=== PATIENT | male | born 1950 | race Caucasian/White ===

== ENCOUNTER → 2024-04-29 16:22 | Outpatient (REF) | payer OTHER, SELFPAY | LOC: RAD 16:22 | DX: R10.31 Right lower quadrant pain (principal) | CPT/HCPCS: 76705 ==

== ENCOUNTER 2024-04-30 20:43 | Inpatient (IN) | payer OTHER, SELFPAY ==
[2024-04-30 16:42] VITALS: BP 151/83
--- NOTE | 2024-04-30 16:49 | ED.GENMED ---
ED Provider Triage
<Criss Erickson PA-C - Last Filed: 04/30/24 16:50>
-
Patient seen by provider in Triage?: Seen in Triage
Attestation: A medical screening examination has been initiated by a qualified medical provider. Based on the assessment performed at this time, it has been determined that an emergent medical condition may exist and the patient has been informed
that further medical evaluation and possible additional diagnostic testing may be needed.
HPI: 74yoM here after an outpatient CT this morning showed appendicitis. Having abd pain x 3-4 days. Also feels constipated. Had some chills yesterday but denies fevers.
GENERAL: Alert , in no apparent distress
EYE: No visual abnormalities.
NECK: Trachea midline
ENT: No visible abnormalities.
LUNGS: No acute respiratory distress
NEUROLOGICAL: Alert and oriented
SKIN: Skin intact. No visible changes.
MUSCULOSKELETAL: Moving extremities normally
PSYCH: Normal and appropriate interaction.
This is a medical evaluation conducted in person to initiate diagnostic evaluation and provide initial therapeutics. Please see further documentation by the treating clinician.
CBC, CMP, and IV ordered.
History of Present Illness
<Criss Erickson PA-C - Last Filed: 04/30/24 16:50>
General
Chief Complaint: Abdominal Pain
Time Seen by Provider: 04/30/24 18:48
<Joseline Ashton PA-C - Last Filed: 05/01/24 00:05>
General
Source: patient
Exam Limitations: none
Nursing documentation reviewed up to this point in time: agreed with
History of Present Illness
History of Present Illness:
Patient is a 74-year-old male with history hypertension, hyperlipidemia, CAD, diabetes presenting to the emergency department after outpatient CT scan showed acute appendicitis. Patient reports ongoing abdominal pain over the past 3 to 4 days which
has actually improved since the initial day of pain. Pain is somewhat localized the right lower quadrant. He did have chills yesterday but denies any known fevers. He does report significant anorexia and has not eaten much over the past 4 days.
However�he did have oatmeal today around 2 PM. Patient denies any chest pain, shortness of breath, dysuria.
Of note�patient does report that he initially saw his primary care 2 days ago and had an outpatient ultrasound which is not [place]. They then performed a CT scan which resulted today showing appendicitis. Patient was then referred to the emergency
department.
Patient is on any blood thinners.
Past History
<Criss Erickson PA-C - Last Filed: 04/30/24 16:50>
Past History
ED Past Medical History: HTN, Hypercholesterolemia, NIDDM and Other ( The patient apparently had a vasospastic IN )
ED Past Surgical History: Other (Patient had a cardiac catheter 2006 which was apparently normal )
Social History
Personal:
Living: with family
Employment: Employed
Review of Systems
<Joseline Ashton PA-C - Last Filed: 05/01/24 00:05>
Review of Systems
Allergies reviewed?: Yes
All Other Systems: ROS reviewed and negative except as documented in HPI and ROS
Phy Exam
<Joseline Ashton PA-C - Last Filed: 05/01/24 00:05>
Physical Exam
Physical Exam:
Vitals: Hypertensive, otherwise stable vital signs. Afebrile
General: Patient is in no acute distress
Skin: Warm and dry, no rashes or lesions
Head: Normocephalic, atraumatic
Eyes: Sclera nonicteric. EOMs intact. No nystagmus.
Throat: Protecting airway
Neck: Normal ROM, no cervical spine tenderness, no meningismus
Cardiac: Regular rate and rhythm, no murmurs.
Pulm: Normal respiratory effort, no wheezes, rales, rhonchi heard on exam.
Abdomen: Abdomen soft. Moderate tenderness in right lower quadrant without rebound tenderness or guarding. No CVA tenderness
Extremities: No evidence of cyanosis or edema. Palpable distal pulses bilaterally
Neuro: AAOx3. Grossly intact.
Psychiatric: Normal affect.
Course
<Criss Erickson PA-C - Last Filed: 04/30/24 16:50>
Orders/Labs/Results
Orders:
Orders
04/30/24 Dinner
NPO
Allow oral meds: Yes
Allow clear liquids: Sips of Clears
04/30/24 16:54
Complete Blood Count/With Diff Urgent
Comprehensive Metabolic Panel Urgent
04/30/24 19:10
SURGICAL CONSULT Urgent
Consulting Provider: Michael Kothari
Was physician already notified: Yes
0.9% Sodium Chloride 1000 ml [Nss] 1,000 ml IV BOLUS
Piperacillin/Tazo 3.375 Gram [Zosyn] 3.375 gram in 50 ml IV NOW
04/30/24 19:11
Electrocardiogram (*1) Urgent
Reason for Study: PreOp
EKG- Treatment ONCE
04/30/24 20:19
Admit/Transfer Patient As Directed
Co-Sign Provider:
Level of Care: Inpatient admission
Assign to:: Medical/Surgical
Physician / Group: hospitalist
Diagnosis: appendicitis
Reason for Hospitalization: appendicitis
Expected length of stay greater than two midnights?: Yes
ELOS- Estimated Length of Stay in days: 2
I certify the patient meets the requirements for IP care: Yes
04/30/24 20:20
Code Status As Directed
Resuscitation Status: Full Code
PRN Pain Medication Management As Directed
May give lesser potent ordered pain med per pt: Yes
preference::
Protocol:: Medication orders for pain may be administered in a
manner that supports deferring to patient preference
when the pt is:
- Requesting an ordered lesser potent pain medication.
Least to most potent pain medications are defined
as: acetaminophen < NSAID < tramadol < opioids
(morphine, oxycodone, hydromorphone).
- Requesting a lesser dose of the same medication IF
ORDERED.
- Requesting a less intrusive route of administration
if both routes are prescribed by the provider (PO <
IV).
04/30/24 23:42
Acetaminophen [Tylenol] 650 mg PO Q4HPRN PRN
Lactated Ringers [Lr] 1,000 ml IV 100 mls/hr
Morphine Sulfate 2 mg IV Q4HPRN PRN
Ondansetron Injectable [Zofran] 4 mg IV Q6HPRN PRN
Oxycodone [Roxicodone] 5 mg PO Q4HPRN PRN
04/30/24 23:42
Activity As Directed
Activity Level: With Assistance
Bedside Glucose Monitoring As Directed
Frequency: Q6H
Vital Signs As Directed
Frequency: Per unit guidelines
DX Deep Vein Thrombosis Video Routine
05/01/24 00:00
Insulin Aspart Corrective Low [Novolog Flexpen-Low Resistance] See Protocol SC Q6
05/01/24 02:00
Piperacillin/Tazo 3.375 Gram [Zosyn] 3.375 gram in 50 ml IV Q6H
05/01/24 06:00
Basic Metabolic Panel IN AM
Complete Blood Count/No Diff IN AM
Magnesium IN AM
05/01/24 08:00
Amlodipine [Norvasc] 5 mg PO DAILY
Paroxetine [Paxil] 20 mg PO DAILY
05/01/24 18:00
Enoxaparin Sodium [Lovenox] 40 mg SC QPM
Abnormal Lab Results
04/30/24
16:54
WBC 12.2 H 10^3/uL
(4.8-10.8)
Absolute Neuts (auto) 9.6 H 10^3/uL
(1.4-6.5)
Absolute Monos (auto) 1.4 H 10^3/uL
(0.1-0.6)
Neutrophils % 78.5 H %
(42.2-75.2)
Lymphocytes % 9.7 L %
(20.5-51.1)
Monocytes % 11.0 H %
(1.7-9.3)
Sodium 132 L mmol/L
(135-145)
Chloride 93 L mmol/L
(98-107)
BUN 25 H mg/dl
(9-20)
Glucose 221 H mg/dl
(70-99)
Total Bilirubin 2.4 H mg/dl
(0.2-1.3)
04/30/24 16:54
04/30/24 16:54
Vital Signs
Initial and Last Documented VS:
Initial Vital Signs
Temp Pulse Resp BP Pulse Ox
98.1 F 111 18 151/83 96
04/30/24 16:42 04/30/24 16:42 04/30/24 16:42 04/30/24 16:42 04/30/24 16:42
Last Documented Vital Signs
Temp Pulse Resp BP Pulse Ox
98.1 F 90 16 119/61 95
04/30/24 16:42 04/30/24 19:49 04/30/24 19:49 04/30/24 20:00 04/30/24 23:30
<Joseline Ashton PA-C - Last Filed: 05/01/24 00:05>
Orders/Labs/Results
Orders:
Orders
04/30/24 Dinner
NPO
Allow oral meds: Yes
Allow clear liquids: Sips of Clears
04/30/24 16:54
Complete Blood Count/With Diff Urgent
Comprehensive Metabolic Panel Urgent
04/30/24 19:10
SURGICAL CONSULT Urgent
Consulting Provider: Michael Kothari
Was physician already notified: Yes
0.9% Sodium Chloride 1000 ml [Nss] 1,000 ml IV BOLUS
Piperacillin/Tazo 3.375 Gram [Zosyn] 3.375 gram in 50 ml IV NOW
04/30/24 19:11
Electrocardiogram (*1) Urgent
Reason for Study: PreOp
EKG- Treatment ONCE
04/30/24 20:19
Admit/Transfer Patient As Directed
Co-Sign Provider:
Level of Care: Inpatient admission
Assign to:: Medical/Surgical
Physician / Group: hospitalist
Diagnosis: appendicitis
Reason for Hospitalization: appendicitis
Expected length of stay greater than two midnights?: Yes
ELOS- Estimated Length of Stay in days: 2
I certify the patient meets the requirements for IP care: Yes
04/30/24 20:20
Code Status As Directed
Resuscitation Status: Full Code
PRN Pain Medication Management As Directed
May give lesser potent ordered pain med per pt: Yes
preference::
Protocol:: Medication orders for pain may be administered in a
manner that supports deferring to patient preference
when the pt is:
- Requesting an ordered lesser potent pain medication.
Least to most potent pain medications are defined
as: acetaminophen < NSAID < tramadol < opioids
(morphine, oxycodone, hydromorphone).
- Requesting a lesser dose of the same medication IF
ORDERED.
- Requesting a less intrusive route of administration
if both routes are prescribed by the provider (PO <
IV).
04/30/24 23:42
Acetaminophen [Tylenol] 650 mg PO Q4HPRN PRN
Lactated Ringers [Lr] 1,000 ml IV 100 mls/hr
Morphine Sulfate 2 mg IV Q4HPRN PRN
Ondansetron Injectable [Zofran] 4 mg IV Q6HPRN PRN
Oxycodone [Roxicodone] 5 mg PO Q4HPRN PRN
04/30/24 23:42
Activity As Directed
Activity Level: With Assistance
Bedside Glucose Monitoring As Directed
Frequency: Q6H
Vital Signs As Directed
Frequency: Per unit guidelines
DX Deep Vein Thrombosis Video Routine
05/01/24 00:00
Insulin Aspart Corrective Low [Novolog Flexpen-Low Resistance] See Protocol SC Q6
05/01/24 02:00
Piperacillin/Tazo 3.375 Gram [Zosyn] 3.375 gram in 50 ml IV Q6H
05/01/24 06:00
Basic Metabolic Panel IN AM
Complete Blood Count/No Diff IN AM
Magnesium IN AM
05/01/24 08:00
Amlodipine [Norvasc] 5 mg PO DAILY
Paroxetine [Paxil] 20 mg PO DAILY
05/01/24 18:00
Enoxaparin Sodium [Lovenox] 40 mg SC QPM
Abnormal Lab Results
04/30/24
16:54
WBC 12.2 H 10^3/uL
(4.8-10.8)
Absolute Neuts (auto) 9.6 H 10^3/uL
(1.4-6.5)
Absolute Monos (auto) 1.4 H 10^3/uL
(0.1-0.6)
Neutrophils % 78.5 H %
(42.2-75.2)
Lymphocytes % 9.7 L %
(20.5-51.1)
Monocytes % 11.0 H %
(1.7-9.3)
Sodium 132 L mmol/L
(135-145)
Chloride 93 L mmol/L
(98-107)
BUN 25 H mg/dl
(9-20)
Glucose 221 H mg/dl
(70-99)
Total Bilirubin 2.4 H mg/dl
(0.2-1.3)
04/30/24 16:54
04/30/24 16:54
Vital Signs
Initial and Last Documented VS:
Initial Vital Signs
Temp Pulse Resp BP Pulse Ox
98.1 F 111 18 151/83 96
04/30/24 16:42 04/30/24 16:42 04/30/24 16:42 04/30/24 16:42 04/30/24 16:42
Last Documented Vital Signs
Temp Pulse Resp BP Pulse Ox
98.1 F 90 16 119/61 95
04/30/24 16:42 04/30/24 19:49 04/30/24 19:49 04/30/24 20:00 04/30/24 23:30
<Joseline Ashton PA-C - Last Filed: 05/01/24 00:05>
MDM/Problems Addressed
Differential Diagnosis Includes:
Not limited to: Appendicitis, complicated appendicitis including abscess or perforation
MDM/Problems Addressed:
74-year-old male presenting with 3 days of right lower quadrant pain and appendicitis seen on outpatient CT scan. No fevers or vomiting. No urinary symptoms. Patient initially tachycardic on arrival although normalized by my assessment. He is
afebrile with otherwise stable vital signs. Physical exam as above. Patient very well-appearing, nontoxic. Abdomen is soft with moderate tenderness in right lower quadrant no rebound tenderness or guarding. Cardio/pulmonary assessment
unremarkable. Basic labs initiated in triage show leukocytosis of 12.2, otherwise no clinically significant abnormalities. Did review CT scan performed outpatient which shows findings of acute appendicitis, possible phlegmon versus contained
perforation at tip of appendix. Case and findings were discussed with general surgery, Dr. Kothari. Plan to keep patient n.p.o. with general surgery consultation tomorrow. Possible operative versus nonoperative management. Patient started on
Zosyn, IV fluids emergency department. Will give Tylenol for pain. Will obtain preop EKG. Patient admitted to hospitalist service in stable condition. Case discussed with attending physician.
Chronic conditions affecting care:
Hypertension, diabetes
Acute Exacerbation and/or Progression of Chronic Illness:
Acutely hypertensive, acutely hyperglycemic
<Joseline Ashton PA-C - Last Filed: 05/01/24 00:05>
*Pulse Oximetry
Patient hypoxic: no
*EKG
Interpreted by ED Provider?: Yes
EKG Intrepretation Date: 04/30/24
Interpretation: normal
Comparison EKG: no changes
Heart Rate: 93
Rate: normal
Rhythm: sinus
[place]: normal axis
Interval: normal QT interval
QRS Pattern: right bundle branch block
Ischemia: no ischemia
*Doll Wig Maker Interpretation
Rate: Doll Wig Maker- N/A
*Critical Care Note
Total Time (30-74mins, 75-104mins- exclusive of procedures): Not Applicable
<Joseline Ashton PA-C - Last Filed: 05/01/24 00:05>
Patient Management
Discussion with other providers: Hospitalist and [employer] Analyst (General Surgery-Dr. Kothari)
Escalation/DeEscalation of care consider admission/obs:
Admit for general surgery consultation, IV antibiotics
ED Attending Note
<Criss Erickson PA-C - Last Filed: 04/30/24 16:50>
-
Portions of this chart may have been created with voice recognition software.� Occasional wrong word or��sound alike� substitutions may have occurred due to the inherent limitations of voice recognition software.
Discharge Plan
Departure
Patient Disposition: Admit
Date of Disposition: 04/30/24
Time of Disposition: 19:24
Presentation/result/management discussed w/ accepting MD/DO: Hospitalist
Discharge Problem:
Acute appendicitis
Interventions
Interventions:
*Risk Screen - Suicide Last Done: 04/30/24 16:42
*General Assessment Last Done: 04/30/24 19:47
*Neglect/Abuse Screening Last Done: 04/30/24 16:42
ED- Fall Risk Assessment Last Done: 04/30/24 22:13
*ED COVID-19 Vaccine History Last Done: 04/30/24 16:42
*Nursing Disposition Last Done: 04/30/24 23:43
VP-Naqaam-Qfbavgnmhe Assessment Last Done: 04/30/24 19:47
Discharge Date and Time
Discharge Date/Time: 04/30/24 23:43
[2024-04-30 17:12] LABS: % Basophils 0.2 % (0-2); % Eosinophils 0.3 % (0-6); % Immature Granulocytes 0.3 % (0-0.5); % Lymphocytes 9.7 % (20.5-51.1); % Neutrophils 78.5 % (42.2-75.2); Absolute Lymphocytes 1.2 10^3/uL (1.2-3.4); Absolute Monocytes 1.4 10^3/uL (0.1-0.6); Absolute Neutrophils 9.6 10^3/uL (1.4-6.5); Hematocrit 42.6 % (39.0-52.0); Hemoglobin 14.5 g/dL (13.0-18.0); Mean Platelet Volume 9.4 fL (7.4-10.4); Nucleated Red Blood Cells % 0 % (-); Platelet Count 272 10^3/uL (130-400); Red Blood Cell Count 4.84 10^6/uL (4.70-6.10); Red Cell Dist. Width 13.1 % (11.5-14.5); White Blood Cell Count 12.2 10^3/uL (4.8-10.8)
[2024-04-30 17:31] LABS: ALT (SGPT) 24 U/L (0-50); AST (SGOT) 26 U/L (17-59); Albumin 4.3 g/dl (3.5-5.0); Alkaline Phosphatase 108 U/L (38-126); Blood Urea Nitrogen 25 mg/dl (9-20); Carbon Dioxide 26 mmol/L (22-30); Chloride 93 mmol/L (98-107); Glucose 221 mg/dl (70-99); Potassium 4.3 mmol/L (3.5-5.1); Sodium 132 mmol/L (135-145); Total Bilirubin 2.4 mg/dl (0.2-1.3); eGFR > 60.00
[2024-04-30] MEDS: NSS 1000 IV (19:45)
[2024-04-30] MEDS: ZOSYN 50 IV (19:46)
[2024-04-30 19:49] VITALS: BP 132/64
[2024-04-30 20:00] VITALS: BP 119/61
--- NOTE | 2024-04-30 20:14 | HPS.HSE ---
Family Physician
-
Family Physician: Alex Mac MD
Chief Complaint
-
Abdominal pain
History of Present Illness
This is a 74 y.o male with past medical history of [id number] Beatties, hypertension, CAD status post remote GA who presents to the emergency department with 4 days of abdominal pain.
Patient reports sudden onset of acute abdominal pain localized to the right lower quadrant occasionally radiating to the periumbilical region. He said the pain was severe about 4 days ago but seems to have improved over the last 2 days. He denied
having fevers or chills. He denies any nausea vomiting or diarrhea. He followed up with his physician 2 days ago and had an ultrasound yesterday which was nonconclusive. He followed up with a CT scan this morning which showed acute appendicitis
and came to the emergency department for further evaluation.
In the emergency department the patient was afebrile, blood pressure was 150/80 with a pulse of 90 satting 97% on room air. White count was 12.2, hemoglobin 14.5 platelet count 272. Electrolytes notable for a sodium of 132 but is otherwise
unremarkable. BUN and creatinine noted.
CT of the abdomen and pelvis shows acute appendicitis with phlegmon versus contained perf.
Medical History
Past Medical History
Past Medical History: Reports CAD (remote mi), HTN, Hypercholesterolemia and NIDDM
Past Surgical History: Reports Other
Social History
Tobacco: Non-smoker
Alcohol: None
Drug: None
Personal: Single
Living: With Family
Employment: Retired
Family History
Family History: Not pertinent
Allergies / Home Medications
Allergies reflects when Allergies were last updated in [facility].
Home Medications with original date entered in [facility]
Allergy/Medication List:
Allergies
Allergy/AdvReac Type Severity Reaction Status Date / Time
No Known Allergies Allergy Verified 04/30/24 16:47
Home Medications
aspirin 81 mg tablet,delayed release 81 mg PO DAILY 01/09/10
atorvastatin 20 mg tablet 20 mg PO DAILY 01/09/10
multivitamin with folic acid 400 mcg tablet (Tab-A-Yasir) 1 tab PO DAILY 01/09/10
paroxetine HCl 20 mg tablet 20 mg PO DAILY 01/09/10
pioglitazone 30 mg tablet 30 mg PO DAILY 01/09/10
nitroglycerin 0.4 mg sublingual tablet 0.4 mg sublingual [id number] PRN chest pains 05/14/12
omega-3 fatty acids-fish oil 300 mg-1,000 mg capsule 1 ea PO BID 05/14/12
metformin 1,000 mg tablet 1,000 mg PO BID 05/15/12
amlodipine 5 mg tablet (Norvasc) 5 mg PO DAILY 04/30/24
glipizide 10 mg tablet, extended release 24 hr 10 mg PO BID 04/30/24
semaglutide 0.25 mg or 0.5 mg (2 mg/3 mL) subcutaneous pen injector (Ozempic) 0.5 mg SC SA 04/30/24
Review of Systems
-
Constitutional: Reports No Symptoms
EENT: Reports No Symptoms
Cardiac: Reports No Symptoms
Abdomen/GI: Reports Abdominal Pain
Musculoskeletal: Reports No Symptoms
Skin: Reports No Symptoms
Neurological: Reports No Symptoms
Endocrine: Reports No Symptoms
Hematologic/Lymphatic: Reports No Symptoms
Psych: Reports No Symptoms
Physical Exam
Vital Signs
Vital Signs
Temp Pulse Resp BP Pulse Ox
98.1 F 90 16 151/83 97
04/30/24 16:42 04/30/24 19:49 04/30/24 19:49 04/30/24 16:42 04/30/24 19:49
Physical Exam
General: Well Developed, Well Nourished, No Apparent Distress and Comfortable
HEENT: NormoCephalic, Anicteric, Moist mucous membranes and Atraumatic
Respiratory: Clear
Cardiac: S1/S2 and Regular Rhythm
Breast: Deferred by me
GI: Soft, Non Distended, Normal Bowel Sounds and Tender (Right lower quadrant)
Rectal: Deferred by Provider
Genito-urinary: Deferred by me
Musculoskeletal: No Clubbing and No Edema
Skin: Warm
Neuro: AO x 3 and Nonfocal/grossly intact
Hematologic/Lymphatic: No Lymphadenopathy
Psych: Calm
Laboratory Results
-
04/30/24 16:54
04/30/24 16:54
Laboratory Results
Total Bilirubin 2.4 mg/dl (0.2-1.3) H 04/30/24 16:54
AST 26 U/L (17-59) 04/30/24 16:54
ALT 24 U/L (0-50) 04/30/24 16:54
Alkaline Phosphatase 108 U/L (38-126) 04/30/24 16:54
Data Reviewed
-
CT Scan: Report Reviewed by me
Lab Data: Labs Reviewed by me
Old Records: Reviewed
Impression/Plan
-
IMPRESSION:
74 y.o with acute appendicitis.
PLAN:
1.Acute appendicitis - seenon CT a/p. WBC 12. Afebrile, HD ginny. No abdominal pain at rest. RLQ tenderness to palpation on examination.
- admit to med/surg
- surgery aware and holding off surgery at the moment
- continue zosyn for now
- NPO, IV fluids, antimetics and pain control
- surgical consult.
2. DM II-
- hold glipizide and metformin
- sliding scale insulin
3. CAD
- continue atorvastatin for now, hold aspirin
- continue amlodipine
DVT PPX - lovenox
Code status - full code
[2024-04-30 23:53] VITALS: BP 124/67; BMI 29.3
[2024-04-30] MEDS: LR 1000 IV (23:59)
[2024-05-01] VITALS (11 sets, daily range): BP systolic 0–157; BP diastolic 59–78
[2024-05-01] MEDS: NOVOLOG FLEXPEN-LOW RESISTANCE SC ×3 (00:17→12:18)
[2024-05-01 00:25] LABS: Glucose - Point of Care 127 mg/dl (70-99)
--- NOTE | 2024-05-01 00:33 | PTCARENOTE ---
Received patient from ED via stretcher; Medsurg order. VSS> afebrile, HR 85, RR 18, BP 124/67, pox 98% room air. 3/10 dull pain RLQ. AAOx3, steady on feet. PMH reviewed by this RN and patient. Plan of care discussed. Patient oriented to room. Call
payen within reach.
[2024-05-01] MEDS: ZOSYN 50 IV ×4 (02:06→19:54)
[2024-05-01 06:13] LABS: Glucose - Point of Care 98 mg/dl (70-99)
--- NOTE | 2024-05-01 08:15 | CON.GS ---
Medical History
-
Chief Complaint: Abdominal pain
History of Present Illness:
Patient is a 74-year-old male with a 4-day history of abdominal pain, acute in onset initially periumbilical and subsequently localizing more to the right lower quadrant. Had associated subjective chills/sweats couple days ago. Mild nausea but no
vomiting. Some associated anorexia. Bowels were moving regularly, continues to pass flatus but no bowel movement in the last 2 days. No similar episodes in the past. Outpatient workup identified appendicitis prompting emergency department
evaluation.
Past Medical History
Past Medical History: CAD (Previous history of ND with angioplasty), HTN, Hypercholesterolemia, NIDDM and Other
Past Surgical History: Other (No past abdominal surgical history)
Social History
Tobacco: Non-Smoker
Family History
Family History: Reviewed & Noncontributory
Allergies / Home Medications
Allergy/AdvReac Type Severity Reaction Status Date / Time
No Known Allergies Allergy Verified 04/30/24 16:47
�Medication �Instructions �Recorded �Confirmed �Type
aspirin 81 mg tablet,delayed 81 mg PO DAILY 01/09/10 04/30/24 History
release
atorvastatin 20 mg tablet 20 mg PO DAILY 01/09/10 04/30/24 History
multivitamin with folic acid 400 1 tab PO DAILY 01/09/10 04/30/24 History
mcg tablet (Tab-A-Yasir)
paroxetine HCl 20 mg tablet 20 mg PO DAILY 01/09/10 04/30/24 History
pioglitazone 30 mg tablet 30 mg PO DAILY 01/09/10 04/30/24 History
nitroglycerin 0.4 mg sublingual 0.4 mg sublingual [id number] PRN 05/14/12 04/30/24 History
tablet chest pains
omega-3 fatty acids-fish oil 300 1 ea PO BID 05/14/12 04/30/24 History
mg-1,000 mg capsule
metformin 1,000 mg tablet 1,000 mg PO BID 05/15/12 04/30/24 History
amlodipine 5 mg tablet (Norvasc) 5 mg PO DAILY 04/30/24 04/30/24 History
glipizide 10 mg tablet, extended 10 mg PO BID 04/30/24 04/30/24 History
release 24 hr
semaglutide 0.25 mg or 0.5 mg (2 0.5 mg SC SA 04/30/24 04/30/24 History
mg/3 mL) subcutaneous pen injector
(Ozempic)
Review of Systems
-
A 10 point review of systems was completed, and was negative except as per HPI.
Physical Exam
Vital Signs
Temp Pulse Resp BP Pulse Ox
98.5 F 90 14 136/68 96
05/01/24 07:30 05/01/24 07:30 05/01/24 07:30 05/01/24 07:30 05/01/24 07:30
04/30/24 05/01/24 05/02/24
06:59 06:59 06:59
Actual Weight 89.857 kg
Body Mass Index (BMI) 29.3
Lab Results
WBC 12.2 10^3/uL (4.8-10.8) H 04/30/24 16:54
Hgb 14.5 g/dL (13.0-18.0) 04/30/24 16:54
Hct 42.6 % (39.0-52.0) 04/30/24 16:54
Plt Count 272 10^3/uL (130-400) 04/30/24 16:54
Abs Immat Gran (auto) 0.0 10^3/uL (0-0.05) 04/30/24 16:54
Neutrophils % 78.5 % (42.2-75.2) H 04/30/24 16:54
Physical Exam
General: Well Developed, Well Nourished, No Apparent Distress and Comfortable
HEENT: Normocephalic and Anicteric
Respiratory: Non Labored Respirations
Cardiac: Regular Rhythm
GI: Soft, Non Distended (But protuberant) and Tender (Tenderness palpation localized to the right lower quadrant. No rebound, no rigidity, no guarding)
Skin: Warm
Neuro: AO x 3
Psych: Calm
Data Reviewed
-
CT Scan: Image Personally Visualized and interpreted, Report Reviewed by me, Discussed with Physician and Discussed with Patient
Labs: Labs Reviewed by me
Assessment / Plan
-
Assessment: 74-year-old male presenting with acute appendicitis.
CT imaging personally reviewed. Distended appendix, fluid-filled, possible radiopaque fecalith at the base. Majority of inflammatory process is around the mid to distal appendix with some surrounding free fluid or phlegmon. No extraluminal air.
No organized abscess. Base of the appendix, cecum and terminal ileum appear without significant inflammatory changes.
Reviewed with patient treatment options including operative and nonoperative management. We reviewed risks and benefits of these treatment options and patient is in agreement to proceed with appendectomy. Laparoscopic appendectomy was reviewed in
detail including the operative technique, potential operative findings and the management, alternative treatment options, benefits and risk such as but not limited to bleeding, infectious and related complications, iatrogenic injury to surrounding
viscera. We discussed the typical postoperative recovery pending operative findings including risk of postoperative ileus, utilization of a HAFSA drain and postoperative activity limitations as well as surgical follow-up. Any of the patient's
concerns or questions were fully addressed and informed consent was obtained.
Plan: Patient is on the OR schedule today for a laparoscopic appendectomy
N.p.o.
IV antibiotics and supportive care awaiting the OR timing
[2024-05-01 08:32] LABS: Hematocrit 39.2 % (39.0-52.0); Hemoglobin 13.5 g/dL (13.0-18.0); Mean Corp Hgb Conc. 34.4 g/dL (33.0-37.0); Mean Corpuscular Hgb 30.5 pg (27.0-31.0); Mean Corpuscular Volume 88.7 fL (80.0-94.0); Mean Platelet Volume 9.5 fL (7.4-10.4); Platelet Count 254 10^3/uL (130-400); Red Blood Cell Count 4.42 10^6/uL (4.70-6.10); White Blood Cell Count 10.1 10^3/uL (4.8-10.8)
[2024-05-01] MEDS: NORVASC 5 MG PO (08:46)
[2024-05-01] MEDS: PAXIL 20 MG PO (08:46)
[2024-05-01 09:02] LABS: Blood Urea Nitrogen 12 mg/dl (9-20); Calcium 8.1 mg/dl (8.4-10.2); Carbon Dioxide 29 mmol/L (22-30); Chloride 99 mmol/L (98-107); Estimated Creatinine Clearance 106 ml/min; Glucose 94 mg/dl (70-99); Magnesium 1.7 mg/dl (1.6-2.3); Potassium 3.8 mmol/L (3.5-5.1); Sodium 138 mmol/L (135-145); eGFR > 60.00
--- NOTE | 2024-05-01 09:20 | W.PN.HOSP.TC ---
Today's Communication/Plan
-
see outlined plan
Assessment / Plan
Assessment / Plan
Assessment:
Acute appendicitis
- CT: Appendicitis. Small region of confluent opacity adjacent to the appendix tip; phlegmon versus contained perforation.
- continue NPO, IVF
- continue Zosyn
- pain control, anti-emetics
- GS consulted; for lap appy today
Acute hyponatremia
- improving with IVF
CAD s/p hx of remote RI
HLD
- hold ASA and continue Statin
Essential HTN
- continue Norvasc
NIDDM
- continue SSI
- holding MFM/Actos/Glipizide/Ozempic
DVT ppx: Lovenox
Code: Full
Anticipated Discharge: 24 - 48 hours
Subjective/Interval History
-
Date of Service: May 01, 2024
reports some RLQ pain
had a BM today
no n/v
Objective Data
-
Labs:
Laboratory Results
05/01/24
08:10
WBC 10.1
Hgb 13.5
Hct 39.2
Plt Count 254
Sodium 138
Potassium 3.8
Chloride 99
Carbon Dioxide 29
BUN 12
Creatinine 0.6 L
Glucose 94
Calcium 8.1 L
Vital Signs:
Vital Signs
Temp Pulse Resp BP Pulse Ox
98.5 F 90 14 136/68 96
05/01/24 07:30 05/01/24 08:46 05/01/24 07:30 05/01/24 08:46 05/01/24 07:30
I&O
04/30/24 05/01/24 05/02/24
06:59 06:59 06:59
Intake Total 700 / 700
Balance 700 / 700
Physical Exam
-
General: No Apparent Distress
HEENT: Normocephalic and Atraumatic
Respiratory: Negative Wheezes
Cardiac: Regular Rhythm and S1/S2
GI: Tender ((Tenderness palpation localized to the right lower quadrant. No rebound, no rigidity, no guarding)
Neuro: AO x 3
Hematologic / Lymphatic: No Lymphadenopathy
Psych: Calm
Data Reviewed
-
Total Time Spent with Patient (in minutes): 42
Labs: Labs Reviewed by me
--- NOTE | 2024-05-01 10:05 | CM ---
Patient seen bedside.
Patient for Appendectomy today
IA completed.
patient lives with son in a 1 story home with 4 steps to enter.
patient independent prior to admission without assistive devices.
patient denies home care needs.
PCP: Tigist Ortega
Pharmacy: [facility]
Plan: home no needs anticipated
--- NOTE | 2024-05-01 10:30 | W.SUR.PREOP ---
Pre-Operative Surgical Note
-
I have examined this patient prior to the performance of the scheduled procedure.
The patient's condition is unchanged from the time of the current History and
Physical and the patient is able to undergo the scheduled procedure.
[2024-05-01] MEDS: LR 1000 IV (10:37)
[2024-05-01 12:23] LABS: Glucose - Point of Care 99 mg/dl (70-99)
[2024-05-01 13:41] LABS: Glucose - Point of Care 89 mg/dl (70-99)
--- NOTE | 2024-05-01 14:37 | W.IMMPOSTOP ---
Addendum entered and electronically signed by Julius Sal MD 05/01/24 15:27:
#[id number]
Original Note:
Surgical Immed Post Op Note
-
Primary Surgeon: Julius Sal
Assisting Surgeon: Denis SMITH
Pre-op Diagnosis: Acute appendicitis
Post-op Diagnosis: Acute perforated appendicitis with localized peritonitis/abscess
Procedure Performed: Laparoscopic appendectomy
Anesthesia Type: GETA +0.25% Marcaine
Specimen / Cultures: Appendix
Estimated Blood Loss: 8 mL
Complications: None immediate
Operative Findings: Distended, acutely inflamed appendix walled off perforation with localized abscess/peritonitis. No free purulence. Appendix freed from surrounding inflammatory reaction and fibrinous exudate around base of cecum and small bowel
mesentery. Mesoappendix divided with harmonic. Probable palpable fecalith towards proximal appendix. Appendix divided on cecal side with Endo MILLA purple 45 mm load x 2. Staple line clean and intact, no significant thickening or inflammation at
staple line margin. Terminal ileum normal. No purulence in the pelvis.
Drains: 19 Sameer drain from left lower quadrant 8 mm trocar site into pelvis and right lower quadrant for postoperative drainage of the surgical field.
Plan: Clear liquid diet postop, hold on dietary advancement until signs of GI recovery as expecting ileus
Zosyn -anticipate total 7-day course postoperative antibiotic therapy with transition to oral antibiotics at time of discharge
HAFSA to bulb suction; anticipate removal prior to DC home
[2024-05-01 14:58] LABS: Glucose - Point of Care 126 mg/dl (70-99)
[2024-05-01 17:47] LABS: Glucose - Point of Care 165 mg/dl (70-99)
[2024-05-01] MEDS: NOVOLOG FLEXPEN-LOW RESISTANCE 1 UNITS SC (17:50)
[2024-05-01] MEDS: LOVENOX 40 MG SC (17:51)
[2024-05-01 21:27] LABS: Glucose - Point of Care 238 mg/dl (70-99)
[2024-05-02] MEDS: NOVOLOG FLEXPEN-LOW RESISTANCE SC (01:06)
[2024-05-02] MEDS: LR 1000 IV ×2 (01:51→12:57)
[2024-05-02] MEDS: ZOSYN 50 IV ×4 (02:27→21:21)
[2024-05-02 03:00] VITALS: BP 111/55
[2024-05-02 07:38] LABS: Hematocrit 35.4 % (39.0-52.0); Hemoglobin 12.4 g/dL (13.0-18.0); Mean Corpuscular Hgb 30.9 pg (27.0-31.0); Mean Corpuscular Volume 88.3 fL (80.0-94.0); Mean Platelet Volume 9.7 fL (7.4-10.4); Platelet Count 250 10^3/uL (130-400); Red Blood Cell Count 4.01 10^6/uL (4.70-6.10); Red Cell Dist. Width 12.5 % (11.5-14.5); White Blood Cell Count 9.1 10^3/uL (4.8-10.8)
[2024-05-02 07:41] VITALS: BP 108/53
[2024-05-02 07:59] LABS: Blood Urea Nitrogen 15 mg/dl (9-20); Calcium 8.1 mg/dl (8.4-10.2); Carbon Dioxide 25 mmol/L (22-30); Chloride 99 mmol/L (98-107); Estimated Creatinine Clearance 91 ml/min; Glucose 197 mg/dl (70-99); Potassium 4.1 mmol/L (3.5-5.1); Sodium 134 mmol/L (135-145); eGFR > 60.00
[2024-05-02] MEDS: NORVASC 5 MG PO (08:15)
[2024-05-02] MEDS: PAXIL 20 MG PO (08:15)
[2024-05-02] MEDS: NOVOLOG FLEXPEN-LOW RESISTANCE 2 UNITS SC ×3 (08:47→17:51)
[2024-05-02 08:57] LABS: Glucose - Point of Care 216 mg/dl (70-99)
[2024-05-02 11:38] VITALS: BP 114/65
[2024-05-02 12:47] LABS: Glucose - Point of Care 224 mg/dl (70-99)
--- NOTE | 2024-05-02 13:26 | W.PN.HOSP.TC ---
Today's Communication/Plan
-
continue drain per GS
continue IV Abx
regular diet; monitor for ileus
PT/OT
Assessment / Plan
Assessment / Plan
Assessment:
Acute perforated appendicitis with localized peritonitis/abscess
- CT: Appendicitis. Small region of confluent opacity adjacent to the appendix tip; phlegmon versus contained perforation.
- s/p appendectomy 05/01/24
- continue Zosyn
- pain control, anti-emetics
- follow surgical recs
- continue drain per GS
- diet: regular, monitor for ileus
Acute hyponatremia
- improving with IVF
CAD s/p hx of remote VT
HLD
- hold ASA and continue Statin
Essential HTN
- continue Norvasc
NIDDM
- continue SSI
- holding MFM/Actos/Glipizide/Ozempic
DVT ppx: Lovenox
Code: Full
Anticipated Discharge: > 48 hours
Subjective/Interval History
-
Date of Service: May 02, 2024
s/p appendectomy
tolerating diet so far
no fever/chills
no n/v
Objective Data
-
Labs:
Laboratory Results
05/02/24
07:12
WBC 9.1
Hgb 12.4 L
Hct 35.4 L
Plt Count 250
Sodium 134 L
Potassium 4.1
Chloride 99
Carbon Dioxide 25
BUN 15
Creatinine 0.7
Glucose 197 H
Calcium 8.1 L
Vital Signs:
Vital Signs
Temp Pulse Resp BP Pulse Ox
98.2 F 82 14 114/65 95
05/02/24 11:38 05/02/24 11:38 05/02/24 11:38 05/02/24 11:38 05/02/24 11:38
I&O
05/01/24 05/02/24 05/03/24
06:59 06:59 06:59
Intake Total 700 / 700 3170 / 3170
Output Total / 30
Balance 700 / 700 3140 / 3140
Physical Exam
-
General: No Apparent Distress
HEENT: Normocephalic and Atraumatic
Respiratory: Negative Wheezes
Cardiac: Regular Rhythm and S1/S2
GI: Soft, Tender (mildly) and Other (RLQ drain)
Neuro: AO x 3
Psych: Calm
Data Reviewed
-
Total Time Spent with Patient (in minutes): 44
Labs: Labs Reviewed by me
[2024-05-02 15:31] VITALS: BP 115/56
--- NOTE | 2024-05-02 16:55 | W.PN.GS2 ---
Addendum entered and electronically signed by Phillip Eli MD 05/02/24 17:17:
No issues overnight. Passing flatus, no BMs, feeling hungry, pain controlled.
AFVSS, ABD soft, nondistended, appropriately tender near incisions; incisions well-approximated without erythema or drainage
WBC 9.1
� Advance to diabetic diet
� Continue HAFSA; if clears up prior to discharge, will remove
� Continue 7 days total of postoperative antibiotics
�Continue pain control with Tylenol, Toradol, Dilaudid as needed
� Continue DVT PPx Lovenox
� Appreciate hospitalist
Original Note:
Today's Communication / Plan
-
Advance diet
Continue IV abx
Assessment / Plan
-
74 yo male presenting with acute appendicitis with localize peritonitis/abscess now POD #1 lap appi
AFVSS
No further leukocytosis
--Advanced to ADA diet
--Continue on IV abx with HAFSA drain overnight
--Anticipate 7 day course of abx post op (will change to PO upon d/c)
--May be able to remove HAFSA prior to d/c pending outputs
--Analgesics prn
--OOB/Ambulate
--VTE ppx with lovenox and scd's
Subjective Data
-
Date of Service: May 02, 2024
Patient seen and examined at bedside with Dr. Eli earlier this am around 1015. Denies n/v. Passing flatus post op. Did have 2 bm's preop. Pain well controlled, feels better than he did before surgery.
Objective Data
-
Intake and Output
05/01/24 05/02/24 05/03/24
06:59 06:59 06:59
Intake Total 700 / 700 3170 / 3170
Output Total 30 / 30
Balance 700 / 700 3140 / 3140
Intake:
Oral fluids 720 / 720
IV fluids (Total) 650 / 650 2250 / 2250
Normosol 100 / 100
IV piggybacks 50 / 50 200 / 200
Output:
Drain Output (Total)
Left Aaron-Browning
Other:
Number of approximated MODERATE 1
amounts of urine
Vital Signs
Temp Pulse Resp BP Pulse Ox
98.1 F 80 14 115/56 93
05/02/24 15:31 05/02/24 15:31 05/02/24 15:31 05/02/24 15:31 05/02/24 15:31
Lab Results
05/02/24 07:12
05/02/24 07:12
Calcium 8.1 mg/dl (8.4-10.2) L 05/02/24 07:12
Magnesium 1.7 mg/dl (1.6-2.3) 05/01/24 08:10
Total Bilirubin 2.4 mg/dl (0.2-1.3) H 04/30/24 16:54
AST 26 U/L (17-59) 04/30/24 16:54
ALT 24 U/L (0-50) 04/30/24 16:54
Alkaline Phosphatase 108 U/L (38-126) 04/30/24 16:54
Total Protein 7.0 g/dl (6.3-8.2) 04/30/24 16:54
Albumin 4.3 g/dl (3.5-5.0) 04/30/24 16:54
Physical Exam
-
NAD
ABD soft, mild incisional tenderness, nd
Incisions with intact glue, well approximated, HAFSA with murky SSF
[2024-05-02] MEDS: LOVENOX 40 MG SC (17:51)
[2024-05-02 17:55] LABS: Glucose - Point of Care 249 mg/dl (70-99)
[2024-05-02 19:00] VITALS: BP 115/51
[2024-05-02 21:13] LABS: Glucose - Point of Care 236 mg/dl (70-99)
[2024-05-02 23:00] VITALS: BP 119/57
[2024-05-03] MEDS: ZOSYN 50 IV ×3 (02:26→13:01)
[2024-05-03] MEDS: TYLENOL 650 MG PO (06:32)
[2024-05-03 07:14] LABS: Hematocrit 35.7 % (39.0-52.0); Mean Corp Hgb Conc. 33.6 g/dL (33.0-37.0); Mean Corpuscular Volume 89.3 fL (80.0-94.0); Mean Platelet Volume 9.6 fL (7.4-10.4); Platelet Count 259 10^3/uL (130-400); Red Cell Dist. Width 12.5 % (11.5-14.5); White Blood Cell Count 7.7 10^3/uL (4.8-10.8)
[2024-05-03 07:39] LABS: Blood Urea Nitrogen 16 mg/dl (9-20); Calcium 8.2 mg/dl (8.4-10.2); Carbon Dioxide 29 mmol/L (22-30); Chloride 99 mmol/L (98-107); Estimated Creatinine Clearance 91 ml/min; Glucose 172 mg/dl (70-99); Potassium 3.6 mmol/L (3.5-5.1); Sodium 135 mmol/L (135-145); eGFR > 60.00
[2024-05-03 07:41] VITALS: BP 105/52
[2024-05-03 08:47] LABS: Glucose - Point of Care 189 mg/dl (70-99)
[2024-05-03] MEDS: PAXIL 20 MG PO (08:57)
[2024-05-03] MEDS: NORVASC 5 MG PO (08:58)
[2024-05-03] MEDS: NOVOLOG FLEXPEN-LOW RESISTANCE 1 UNITS SC (08:59)
--- NOTE | 2024-05-03 11:51 | W.PN.GS2 ---
Addendum entered and electronically signed by Phillip Eli MD 05/03/24 13:53:
I saw and examined the patient.
The CLINIC ADMINISTRATOR's note was reviewed and I agree with the note.
Comment:
HAFSA with clear serosanguineous, removed at bedside. Tolerating diet with bowel function. Okay for DC from surgical standpoint, follow-up Dr. Sal in 2 to 3 weeks.
Original Note:
Today's Communication / Plan
-
Dispo planning
Assessment / Plan
-
74 yo male presenting with acute appendicitis with localize peritonitis/abscess now POD #2 lap appi
AFVSS
Tolerating diet with good bowel recovery
HAFSA with clear SSF, removed at bedside
--Advanced to ADA diet
--Anticipate 7 day course of abx post op (change to PO augmentin upon d/c)
--Analgesics prn
--OOB/Ambulate
--VTE ppx with lovenox and scd's
Subjective Data
-
Date of Service: May 03, 2024
Patient seen and examined at bedside with Dr. Eli. Denies n/v. Tolerating diet. Pain minimal and well managed. Passing flatus.
Objective Data
-
Intake and Output
05/02/24 05/03/24 05/04/24
06:59 06:59 06:59
Intake Total 3170 / 3170
Output Total 30 / 30
Balance 3140 / 3140
Intake:
Oral fluids 720 / 720
IV fluids (Total) 2250 / 2250
Normosol 100 / 100
IV piggybacks 200 / 200
Output:
Drain Output (Total) 30 / 30
Left Aaron-Browning 30 / 30
Other:
Number of approximated MODERATE 1 4
amounts of urine
Vital Signs
Temp Pulse Resp BP Pulse Ox
98.2 F 72 14 105/52 96
05/03/24 07:41 05/03/24 07:41 05/03/24 07:41 05/03/24 07:41 05/03/24 07:41
Lab Results
05/03/24 06:31
05/03/24 06:31
Calcium 8.2 mg/dl (8.4-10.2) L 05/03/24 06:31
Magnesium 1.7 mg/dl (1.6-2.3) 05/01/24 08:10
Total Bilirubin 2.4 mg/dl (0.2-1.3) H 04/30/24 16:54
AST 26 U/L (17-59) 04/30/24 16:54
ALT 24 U/L (0-50) 04/30/24 16:54
Alkaline Phosphatase 108 U/L (38-126) 04/30/24 16:54
Total Protein 7.0 g/dl (6.3-8.2) 04/30/24 16:54
Albumin 4.3 g/dl (3.5-5.0) 04/30/24 16:54
Physical Exam
-
NAD
ABD soft, mild incisional tenderness, nd
Incisions with intact glue, well approximated, HAFSA with clear SSF
[2024-05-03 12:44] LABS: Glucose - Point of Care 233 mg/dl (70-99)
[2024-05-03] MEDS: NOVOLOG FLEXPEN-LOW RESISTANCE 2 UNITS SC (12:52)
--- NOTE | 2024-05-03 14:12 | W.PN.HOSP.TC ---
Today's Communication/Plan
-
dc to home
Assessment / Plan
Assessment / Plan
Assessment:
Acute perforated appendicitis with localized peritonitis/abscess
- CT: Appendicitis. Small region of confluent opacity adjacent to the appendix tip; phlegmon versus contained perforation.
- s/p appendectomy 05/01/24
- dc on Augmentin x 5 further days
- drain removed prior to DC
- diet: regular, monitor for ileus
- OP GS f/u
Acute hyponatremia
- improving with IVF
CAD s/p hx of remote CO
HLD
- continue ASA and continue Statin
Essential HTN
- continue Norvasc
NIDDM
- continue SSI
- continue MFM/Actos/Glipizide/Ozempic
DVT ppx: Lovenox
Code: Full
More than 30 minutes spent in discharge including
Final examination of the patient
Summarizing hospital stay
Instructions for continuing care to all relevant caregivers
Preparation of discharge records, prescriptions, and referral forms
Total time spent (in minutes): 41
Anticipated Discharge: Today
Subjective/Interval History
-
Date of Service: May 03, 2024
doing well
drain removed
Objective Data
-
Labs:
Laboratory Results
05/03/24
06:31
WBC 7.7
Hgb 12.0 L
Hct 35.7 L
Plt Count 259
Sodium 135
Potassium 3.6
Chloride 99
Carbon Dioxide 29
BUN 16
Creatinine 0.7
Glucose 172 H
Calcium 8.2 L
Vital Signs:
Vital Signs
Temp Pulse Resp BP Pulse Ox
98.2 F 72 14 105/52 96
05/03/24 07:41 05/03/24 07:41 05/03/24 07:41 05/03/24 07:41 05/03/24 08:45
I&O
05/02/24 05/03/24 05/04/24
06:59 06:59 06:59
Intake Total 3170 / 3170
Output Total 30 / 30
Balance 3140 / 3140
Physical Exam
-
General: No Apparent Distress
HEENT: Normocephalic and Atraumatic
Respiratory: Negative Wheezes
Cardiac: Regular Rhythm and S1/S2
GI: Soft
Genito-urinary: No Costovertebral Tender
Musculoskeletal: No Edema
Neuro: AO x 3
Hematologic / Lymphatic: No Lymphadenopathy
Psych: Calm
Data Reviewed
-
Total Time Spent with Patient (in minutes): 41
Labs: Labs Reviewed by me
--- NOTE | 2024-05-03 14:14 | W.DS.TRANS ---
DC Summary - Natural Resources Manager
-
Discharge Instructions:
Discharge Diagnosis/Procedures acute appendicitis s/p appendectomy 05/01
Diet As tolerated,Diabetic, Carb Controlled
Activity No strenuous activity
Additional Activity Do not lift over 15lbs for the next 2-3 weeks
Bathing Restrictions OK to Shower
Wound Care Allow the glue to flake off your incisions on
its own over the next 2-3 weeks. Ok to shower
but avoid scrubbing or picking off the glue.
Cover the site where your drain was with a plain
gauze dressing and change daily until drainage
no longer noted.
Instructions:
Stand-Alone Forms:
Changes to Home Medications: No
Discharge Medications:
DC Medications w/original date entered in [employer]
aspirin 81 mg tablet,delayed release 81 mg PO DAILY 01/09/10
atorvastatin 20 mg tablet 20 mg PO DAILY 01/09/10
multivitamin with folic acid 400 mcg tablet (Tab-A-Yasir) 1 tab PO DAILY 01/09/10
paroxetine HCl 20 mg tablet 20 mg PO DAILY 01/09/10
pioglitazone 30 mg tablet 30 mg PO DAILY 01/09/10
nitroglycerin 0.4 mg sublingual tablet 0.4 mg sublingual [id number] PRN chest pains 05/14/12
omega-3 fatty acids-fish oil 300 mg-1,000 mg capsule 1 ea PO BID 05/14/12
metformin 1,000 mg tablet 1,000 mg PO BID 05/15/12
amlodipine 5 mg tablet (Norvasc) 5 mg PO DAILY 04/30/24
glipizide 10 mg tablet, extended release 24 hr 10 mg PO BID 04/30/24
semaglutide 0.25 mg or 0.5 mg (2 mg/3 mL) subcutaneous pen injector (Ozempic) 0.5 mg SC SA 04/30/24
amoxicillin 875 mg-potassium clavulanate 125 mg tablet 1 tab PO Q12H #14 tabs 05/03/24
Home Medication Changes
Pending Results: No
Total time spent discharging patient (in min): 41
[2024-05-03 15:20] VITALS: BP 125/62
--- NOTE | 2024-05-03 15:44 | PTOTSP ---
Orders received, chart reviewed and spoke with RN. As per RN, patient has been independent in the room without AD and is dressed to be discharged.
Patient observed mobilizing independently in room.
No needs identified at this time. If needs change, please re-consult.
== END 2024-05-03 15:35 | disposition home or self-care (01) | DRG 398 ==
LOC: 1 ACUTE 20:43
PROVIDERS: Physician Assistant; ADMITTING PHYSICIAN Internal Medicine; ATTENDING PHYSICIAN Internal Medicine; EMERGENCY PHYSICIAN Student in an Organized Health Care Education/Training Program; FAMILY PHYSICIAN Internal Medicine; OTHER PHYSICIAN Surgery
PROC: 0DTJ4ZZ Resection of Appendix, Percutaneous Endoscopic Approach (ICD-10-PCS; 2024-05-01)
DX: K35.80 Unspecified acute appendicitis (principal); E87.1 Hypo-osmolality and hyponatremia; E78.00 Pure hypercholesterolemia, unspecified; I10 Essential (primary) hypertension; E11.9 Type 2 diabetes mellitus without complications
CPT/HCPCS: 88304; 36415; 74177; 80048; 80053; 82565; 82962; 83735; 84520; 85025; 85027; 93005; 96365; 99285; C1776; Q9967

== ENCOUNTER 2024-05-19 10:08 | Emergency (ER) | payer OTHER, SELFPAY ==
[2024-05-19 10:19] VITALS: BP 146/81
--- NOTE | 2024-05-19 11:06 | ED.GENMED ---
History of Present Illness
General
Chief Complaint: Fall
Time Seen by Provider: 05/19/24 11:00
History of Present Illness
History of Present Illness:
TIME OF INITIAL ENCOUNTER: 11:30 AM
HPI: The [facility] with Dr. Sal (recent appendectomy). He accidentally tripped on a table and fell to the ground. He notes some abrasions to the left lower extremity without any significant pain and
also struck his face and has some bruising/superficial laceration over the nose. He also reports having some intermittent right upper quadrant discomfort after the surgery.
EXAM:
GENERAL: Well appearing in no distress
HEENT: Moist oral mucosa, very superficial laceration of the nasal bone that does not require any repair, no bony tenderness of the nasal bone, he has no hematoma above the level of the nasal bone
C-SPINE: No midline C-spine tenderness
CARDIOVASCULAR: No murmurs, borderline tachycardic heart rate, regular rhythm, No chest wall tenderness
PULMONARY: No respiratory distress, breath sounds are clear and equal
ABDOMEN: Soft with no peritoneal signs, no tenderness, specifically there is no right lower quadrant tenderness or right upper quadrant tenderness
NEUROLOGIC: Excellent strength all extremities, no coordination deficits,
PSYCHIATRIC: Appropriate mental status, normal insight and judgement
EXTREMITIES: Nontender, no edema, moves all extremities equally, although abrasions noted, there is no bony tenderness, he has excellent active range of motion at the left lower extremity at the hip and knee and ankle
SKIN: Abrasions noted to the left lower extremity near the knee,
NUMBER AND COMPLEXITY OF PROBLEMS ADDRESSED AT THE ENCOUNTER
� Chronic conditions affecting care: Has had SVT, high blood pressure, hyperlipidemia, IDDM, CAD
� Acute Exacerbation and/or Progression of Chronic Illness: This is an acute problem
� Differential Diagnosis includes: Contusion, abrasion, minor head injury, minor facial injury
AMOUNT AND/OR COMPLEXITY OF DATA TO BE REVIEWED AND ANALYZED
� I performed an independent evaluation of and my interpretation is:
EKG:
CT:
X-rays:
Laboratory Studies:
Other:
� Review of other/old records: I reviewed records, the patient was discharged earlier this month related to appendicitis�he did have abscess
� Clinical information was obtained by an independent historian: I spoke to the son at bedside
� Prescriptions/Medications Considered but not given:
� Further testing considered but not performed: Considered x-ray however the patient has excellent active range of motion and no bony tenderness at the left lower extremity, there is also no bony tenderness of the nasal bone.
Consider CT brain however other than small area of ecchymosis of the nasal bone, he has no supraorbital or scalp hematoma
RISK OF COMPLICATIONS AND/OR MORBIDITY OR MORTALITY OF PATIENT MANAGEMENT
� Social determinants of health affecting care: Lives at home
� Discussion with other providers:
� Escalation of care including admission/observation vs risk of discharge considered: Although the patient is tachycardic, he states he feels somewhat nervous. He has no bony tenderness. Although he does have a superficial
laceration over the nasal bone, there is no bony tenderness over the nasal bone. Considered CT imaging however the patient has no headache, no neck pain. Regarding the reported abdominal pain, he has no abdominal pain now and has a nontender
abdomen. He will follow-up with Dr. Sal as outpatient.
ANY OTHER UPDATES:
Past History
Past History
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
ED Past Surgical History: Other (Patient had a cardiac catheter 2006 which was apparently normal )
Social History
Personal:
Living: with family
Employment: Employed
Phy Exam
Physical Exam
Physical Exam:
See HPI
Course
Vital Signs
Initial and Last Documented VS:
Initial Vital Signs
Temp Pulse Resp BP Pulse Ox
36.6 C 115 16 146/81 98
05/19/24 10:19 05/19/24 10:19 05/19/24 10:19 05/19/24 10:19 05/19/24 10:19
Last Documented Vital Signs
Temp Pulse Resp BP Pulse Ox
36.6 C 115 16 146/81 98
05/19/24 10:19 05/19/24 10:19 05/19/24 10:19 05/19/24 10:19 05/19/24 10:19
*Critical Care Note
Total Time (30-74mins, 75-104mins- exclusive of procedures): Not Applicable
ED Attending Note
-
Portions of this chart may have been created with voice recognition software.� Occasional wrong word or��sound alike� substitutions may have occurred due to the inherent limitations of voice recognition software.
Discharge Plan
Departure
Patient Disposition: Home (Routine Discharge)
Date of Disposition: 05/19/24
Time of Disposition: 11:40
Patient with high blood pressure during this ER visit?: Yes
Discharge Problem:
Fall, Abrasion
Instructions: Wound Care (DC), Skin Abrasions (DC), BLOOD PRESSURE
Prescriptions:
No Action
multivitamin with folic acid [Tab-A-Yasir] 1 TABLET tablet
1 tab PO DAILY
atorvastatin 20 MG tablet
20 mg PO DAILY
aspirin 81 MG tablet,delayed release (DR/EC)
81 mg PO DAILY
paroxetine HCl 20 MG tablet
20 mg PO DAILY
pioglitazone 30 MG tablet
30 mg PO DAILY
nitroglycerin 0.4 MG tablet, sublingual
0.4 mg sublingual [id number] PRN (Reason: chest pains)
omega-3 fatty acids-fish oil 1 EACH capsule
1 ea PO BID
metformin 1,000 MG tablet
1,000 mg PO BID
glipizide 10 mg Tablet Extended Release 24hr
10 mg PO BID
amlodipine [Norvasc] 5 mg Tablet
5 mg PO DAILY
Ozempic 0.25 mg or 0.5 mg (2 mg/3 mL) Pen Injector
0.5 mg SC SA
amoxicillin-pot clavulanate 875-125 mg tablet
1 tab PO Q12H Qty: 14 0RF
Referrals:
Tigist Ortega PA-C [Family Provider] -
Activity Restrictions/Additional Instructions:
Return here if worse or other concerns. Follow-up primary care doctor.
Interventions
Interventions:
*Risk Screen - Suicide Last Done: 05/19/24 10:19
*General Assessment Last Done: 05/19/24 10:19
*Neglect/Abuse Screening Last Done: 05/19/24 10:19
ED- Fall Risk Assessment Last Done: 05/19/24 11:50
*ED COVID-19 Vaccine History Last Done: 05/19/24 11:04
*Nursing Disposition Last Done: 05/19/24 11:50
ED-Musculoskeletal Assessment Last Done: 05/19/24 11:03
ED- Neurological Assessment Last Done: 05/19/24 11:03
ED-Skin Assessment Last Done: 05/19/24 11:03
Discharge Date and Time
Discharge Date/Time: 05/19/24 11:50
Print Language: SAMI
== END 2024-05-19 11:50 | disposition home or self-care (01) ==
LOC: EMR 10:08
PROVIDERS: EMERGENCY PHYSICIAN Emergency Medicine; FAMILY PHYSICIAN Physician Assistant Medical
DX: S80.812A Abrasion, left lower leg, initial encounter (principal); S01.21XA Laceration without foreign body of nose, initial encounter; W01.0XXA Fall on same level from slipping, tripping and stumbling without subsequent striking against object, initial encounter; I10 Essential (primary) hypertension
CPT/HCPCS: 99282

== ENCOUNTER → 2024-06-04 12:20 | Outpatient (REF) | payer OTHER, SELFPAY | LOC: RAD 12:20 | PROVIDERS: ATTENDING PHYSICIAN Surgery; FAMILY PHYSICIAN Physician Assistant Medical | DX: D37.3 Neoplasm of uncertain behavior of appendix (principal) | CPT/HCPCS: 71260; 74177; Q9967 ==